=== PATIENT | female | born 1955 | race Caucasian/White ===

== ENCOUNTER → 2021-02-02 | Outpatient (REF) ==
--- NOTE | 2021-02-02 15:47 | REP ---
INDICATION: DDD. COMPARISON: None. TECHNIQUE: AP and lateral views of the lumbar spine are provided. FINDINGS: There is a mild levoconvex lumbar scoliotic curve. There are clips in right upper quadrant of the abdomen consistent with previous cholecystectomy. There is degenerative narrowing of the 4 5 and 5 1 disc. Discogenic spurring is seen mild in degree at each lumbar level. There is a 2 mm degenerative grade 1 spondylolisthesis of L4 anterior with respect L5. There is advanced osteoarthritic facet sclerosis and hypertrophy at L4-5 and L5-S1 bilaterally. There is osteoarthritic facet hypertrophy on the right at L3-4 as well. Sacrum and SI joints are intact. Psoas margins appear symmetric. IMPRESSION: Degenerative spondylosis changes as noted above. Advanced osteoarthritic facet disease at 4 5 and 5 1 bilaterally. <Electronically signed by Eleno Anderson > 02/02/21 [id number]
== END ==
LOC: M RAD 10:33
PROVIDERS: ATTEND Internal Medicine
DX: M54.5 Low back pain (principal)

== ENCOUNTER 2024-05-01 08:23 | Day surgery (SDC) | payer MEDICARE, OTHER ==
[~2024-05-01] VITALS: Ht 167.6 cm; Wt 81.7 kg
[~2024-05-01 08:23] MED LIST: ACET125T2 PO; AMIT50TA PO; BUSP10TA PO; DESL1TAB3 PO; DESV50TA3 PO; FOLI1TAB11 PO; HYDR-3490 PO; LANS30TA9 PO; METH2.5T48 PO; OXYC1TAB23 PO; PHENYLEPHRINE 10% OPHTH SOL 5ML OD PRN; SIMV20TA22 PO; TOPI100T9 PO
[2024-05-01] MEDS: BSS IRRIG/VANCO(10MG)/TOBRA(5MG)/EPINEPH(1:1000-0.5CC)500ML BAG-ORONLY As Ordered ONE (10:43)
[2024-05-01] MEDS: OFLOXACIN 0.3 % (OCUFLOX) OPTH SOL 5ML OD ONE (11:11)
[2024-05-01] MEDS: ATROPINE SULFATE 1% OPHTH SOLN 2ML BTL OD SCH (11:11)
[2024-05-01] MEDS: LIDOCAINE 3.5 % 1ML OPHTH TOPICAL GEL OU ONE (11:11)
[2024-05-01] MEDS: PHENYLEPHRINE 2.5% OPHTH SOL 2ML OD SCH (11:11)
[2024-05-01] MEDS: TROPICAMIDE 1% OPHTH SOLN 15ML OD SCH (11:12)
[2024-05-01] MEDS ORDERED: fentaNYL 100 MCG/2 ML INJECTION As Ordered ONE (12:45)
[2024-05-01] MEDS ORDERED: MIDAZOLAM INJ 2MG/2ML VIAL As Ordered ONE (12:45)
[2024-05-01] MEDS: LIDOCAINE 1% SDV 5ML VIAL As Ordered ONE (12:46)
[2024-05-01] MEDS: CEFUROXIME 1MG/0.1ML INTRACAMERAL INJ As Ordered ONE (12:46)
[2024-05-01 13:00] VITALS: BP 122/65; TEMP 96.9; O2SAT 98
== END 2024-05-01 13:30 | disposition home or self-care (01) ==
LOC: M SDC 08:23
PROVIDERS: ATTEND Ophthalmology
DX: H25.11 Age-related nuclear cataract, right eye (principal); M06.9 Rheumatoid arthritis, unspecified; G43.909 Migraine, unspecified, not intractable, without status migrainosus; K58.9 Irritable bowel syndrome, unspecified; Z79.899 Other long term (current) drug therapy; Z79.631 Long term (current) use of antimetabolite agent; Z90.710 Acquired absence of both cervix and uterus; Z87.891 Personal history of nicotine dependence
CPT/HCPCS: 66984; J0697; J2250; J3010; V2632

== ENCOUNTER 2024-05-08 08:57 | Day surgery (SDC) | payer MEDICARE, OTHER ==
[~2024-05-08] VITALS: Ht 167.6 cm; Wt 82.6 kg
[~2024-05-08 08:57] MED LIST changes: +MIDAZOLAM INJ 2MG/2ML VIAL As Ordered ONE; -PHENYLEPHRINE 10% OPHTH SOL 5ML OD PRN; +PHENYLEPHRINE 10% OPHTH SOL 5ML OS PRN; +fentaNYL 100 MCG/2 ML INJECTION As Ordered ONE
[2024-05-08] MEDS: ATROPINE SULFATE 1% OPHTH SOLN 2ML BTL OS SCH (09:50)
[2024-05-08] MEDS: PHENYLEPHRINE 2.5% OPHTH SOL 2ML OS SCH (09:50)
[2024-05-08] MEDS: TROPICAMIDE 1% OPHTH SOLN 15ML OS SCH (09:50)
[2024-05-08] MEDS: OFLOXACIN 0.3 % (OCUFLOX) OPTH SOL 5ML OS ONE (09:50)
[2024-05-08] MEDS: LIDOCAINE 3.5 % 1ML OPHTH TOPICAL GEL OU ONE (09:50)
[2024-05-08] MEDS: BSS IRRIG/VANCO(10MG)/TOBRA(5MG)/EPINEPH(1:1000-0.5CC)500ML BAG-ORONLY As Ordered ONE (10:12)
[2024-05-08] MEDS: LIDOCAINE 1% SDV 5ML VIAL As Ordered ONE (10:12)
[2024-05-08] MEDS: CEFUROXIME 1MG/0.1ML INTRACAMERAL INJ As Ordered ONE (10:12)
[2024-05-08 10:22] VITALS: BP 117/72; TEMP 96.8; O2SAT 96
== END 2024-05-08 10:36 | disposition home or self-care (01) ==
LOC: M SDC 08:57
PROVIDERS: ATTEND Ophthalmology
DX: H25.12 Age-related nuclear cataract, left eye (principal); M06.9 Rheumatoid arthritis, unspecified; K58.9 Irritable bowel syndrome, unspecified; G43.909 Migraine, unspecified, not intractable, without status migrainosus; Z79.899 Other long term (current) drug therapy; Z87.891 Personal history of nicotine dependence; Z98.41 Cataract extraction status, right eye; Z90.710 Acquired absence of both cervix and uterus
CPT/HCPCS: 66984; J0697; J2250; J3010; V2632